=== PATIENT | female | born 2000 | race Caucasian/White ===

== ENCOUNTER → 2023-05-08 | Outpatient (CLI) | payer SELFPAY, OTHER ==
--- NOTE | 2023-05-08 09:55 | ECHOD_ITS ---
Reason For Study: I42,0 Procedure This was a 2D Doppler, Color Flow transthoracic echocardiogram. The study was technically difficult. Definity deferred due to patient . Exam performed in department. Left Ventricle Normal LV size. Left ventricular systolic function is normal. The estimated ejection fraction is 60 %. Normal diastology for age. No regional wall motion abnormalities noted. Right Ventricle Normal right ventricle. Normal systolic function. Atria Normal left atrium. Normal right atrium. Mitral Valve Normal mitral valve. Tricuspid Valve Normal tricuspid valve. Aortic Valve Normal aortic valve. Pulmonic Valve Normal pulmonic valve. Great Vessels Normal aortic root. The pulmonary artery is normal size. Normal inferior vena cava. Pericardium/Pleural No pericardial effusion. MMode/2D Measurements & Calculations LVIDd: 4.5 cm IVSd: 0.81 cm Ao root diam: 2.6 cm LVIDs: 2.9 cm LVPWd: 0.83 cm FS: 36.8 % LAV(MOD-bp): 28.3 ml LVAd ap4: 22.8 cm2 SV(MOD-sp4): 33.3 ml LAV(MOD-bp) Indexed: 15.7 ml/m2 LVLd ap4: 8.0 cm LAV(MOD-sp2): 23.9 ml EDV(MOD-sp4): 53.6 ml LAV(MOD-sp4): 28.2 ml EDV(sp4-el): 55.4 ml LVAs ap4: 12.2 cm2 LVLs ap4: 6.2 cm ESV(MOD-sp4): 20.3 ml ESV(sp4-el): 20.5 ml EF(MOD-sp4): 62.2 % EF(sp4-el): 63.0 % SV(sp4-el): 34.9 ml LA A4 area: 13.1 cm2 LA dimension(2D): 3.0 cm RA A4 area: 14.9 cm2 TAPSE: 2.3 cm Time Measurements MV dec time: 0.27 sec Doppler Measurements & Calculations MV E max jim: 68.4 cm/sec Lat Peak E' Jim: 17.0 cm/sec Med Peak E' Jim: 12.6 cm/sec MV A max jim: 37.6 cm/sec E/E' lat: 4.0 E/E' med: 5.4 MV E/A: 1.8 MV V2 max: 88.2 cm/sec Ao V2 max: 118.2 cm/sec MV max P.1 mmHg MV dec slope: 251.8 cm/sec2 Ao max P.6 mmHg MV V2 mean: 45.0 cm/sec Ao V2 mean: 83.8 cm/sec MV mean P.99 mmHg Ao mean P.2 mmHg MV V2 VTI: 26.5 cm Ao V2 VTI: 26.9 cm AV (velocity ratio): 0.84 LV V1 max: 102.2 cm/sec PA V2 max: 95.7 cm/sec LV V1 max P.2 mmHg PA V2 mean: 68.3 cm/sec LV V1 mean P.4 mmHg LV V1 mean: 71.9 cm/sec LV V1 VTI: 22.7 cm ECHO/Echo Complete Interpretation Summary Normal LV size. Left ventricular systolic function is normal. The estimated ejection fraction is 60 %. Structurally normal valves. Ordering Physician: Royal Lou Referring Physician: Royal Lou Performed By: Italia Burger RCS
== END | disposition home or self-care (01) ==
PROVIDERS: PCP Family Medicine; Referring Provider Internal Medicine Cardiovascular Disease; Visit Provider Internal Medicine Cardiovascular Disease
DX: I42.0 Dilated cardiomyopathy (principal)
CPT/HCPCS: 93306

== ENCOUNTER → 2024-07-20 | Outpatient (CLI) | payer OTHER, SELFPAY ==
[2024-07-20 09:06] LABS: Absolute Lymphocyte Count 2.63 X10^3/uL (0.83-4.51); Absolute Neutrophil Count 4.1 X10^3/uL (2.0-7.7); Basophil# 0.03 X10^3/uL; Basophil% 0.4 % (0-1); Eosinophil# 0.07 X10^3/uL; Eosinophils% 0.9 % (0-5); Hematocrit 40.4 % (37-47); Hemoglobin 13.4 g/dL (12.0-15.0); Lymphocyte # 2.63 X10^3/ul (0.83-4.51); Lymphocyte % 35.7 % (19-41); Mean Corp Hgb Conc 33.2 g/dL (32-36); Mean Corpuscular Volume 90.4 fL (81-99); Mean Platelet Vol. 10.1 fl (6.2-12.0); Monocyte# 0.53 X10^3/uL; Monocyte% 7.2 % (0-10); NRBC Flagged by Analyzer 0 % (0-5); Neutrophil % 55.7 % (47-70); Platelet Count 249 K/mm3 (150-450); RBC Distribution Width CV 12.9 % (11.6-14.6); RBC Distribution Width SD 42.6 fl (35.1-43.9); Red Blood Count 4.47 M/mm3 (4.2-5.4); White Blood Count 7.4 K/mm3 (4.4-11.0)
[2024-07-20 09:17] LABS: Anion Gap 6 (5-15); BUN 12 mg/dL (7-18); BUN/Creat Ratio 15.2 RATIO (10-20); Calcium,Total 9.2 mg/dL (8.5-10.1); Chloride 107 mmol/L (98-107); Creatinine, Serum 0.79 mg/dL (0.55-1.02); EST Glomerular Filtration Rate 95 mL/min (>60); Est Glom Filt Rate - Afr Amer 115 mL/min (>60); Glucose 83 mg/dL (74-106); Magnesium 2.2 mg/dL (1.6-2.6); Potassium 3.7 mmol/L (3.5-5.1); Sodium Level 138 mmol/L (136-145)
== END | disposition home or self-care (01) ==
PROVIDERS: PCP Family Medicine; Referring Provider Physician Assistant Medical; Visit Provider Physician Assistant Medical
DX: R00.2 Palpitations (principal); I42.0 Dilated cardiomyopathy; R07.89 Other chest pain
CPT/HCPCS: 36415; 80048; 83735; 84443; 85025; 93225; 93226